=== PATIENT | female | born 1965 | race Caucasian/White ===

== ENCOUNTER 2018-06-22 09:27 | Day surgery (SDC) | payer BC ==
[~2018-06-22 09:27] MED LIST: FAMOTIDINE 20MG TABLET PO ONE; MECLIZINE 25 MG TABLET PO ONE; METOCLOPRAMIDE 10 MG TABLET PO ONE
[2018-06-22] MEDS ORDERED: MIDAZOLAM HCL 2MG/2ML VIAL IV ONE (09:28)
[2018-06-22] MEDS ORDERED: DEXAMETHASONE 4 MG/ML 1ML VIAL IVP ONE (09:28)
[2018-06-22] MEDS ORDERED: DESFLURANE 240 ML BTL INH ONE (09:28)
[2018-06-22] MEDS ORDERED: ATROPINE SULFATE 0.4 MG/ML 20ML IVP ONE (09:28)
[2018-06-22] MEDS ORDERED: FENTANYL PF 100MCG/2ML VIAL IV ONE (09:28)
[2018-06-22] MEDS ORDERED: GLYCOPYRROLATE 0.2 MG/ML ML IV ONE (09:28)
[2018-06-22] MEDS ORDERED: LIDOCAINE 2% MDV (20MG/ML) 20ML VIAL IV ONE (09:28)
[2018-06-22] MEDS ORDERED: PROPOFOL 10 MG/ML VIAL IV ONE (09:28)
[2018-06-22] MEDS ORDERED: RINGERS SOLUTION,LACTATED 1,000 ML IV ONE (10:00)
[2018-06-22] MEDS ORDERED: SCOPOLAMINE 1 PATCH TDSY TD ONE (10:50)
[2018-06-22] MEDS ORDERED: TRAMADOL HCL 50 MG TABLET PO ONE (12:50)
--- NOTE | 2018-06-23 09:20 | Operative Note ---
DATE OF SURGERY: 06/22/2018 SURGEON: Elliot Vincent D.O. REFERRING PHYSICIAN: Dr. Vilma Shrestha PREOPERATIVE DIAGNOSIS: Dorsal scapholunate ganglion, left wrist. POSTOPERATIVE DIAGNOSIS: Dorsal scapholunate ganglion, left wrist. OPERATION: Excision of dorsal scapholunate ganglion of the left wrist using 3.5 loop magnification. PROCEDURE: This 53-year-old female was taken to the operating room and placed in the supine position on the operating table. General anesthesia was induced, and the left upper extremity was elevated, prepped with Hibiclens, and draped in the usual sterile fashion, exsanguinated, and the tourniquet inflated to 250 mm Hg. A dorsal incision was made over the scapholunate joint, dissecting down through the skin to subcutaneous tissue. Extensor tendons retracted radially and ulnarly to expose the dome of the ganglion. The ganglion had receded in size significantly since she was seen in the office, making it difficult to find, but the soft sac of tissue was identified, and this was bluntly and sharply dissected free and removed. Capsulotomy was performed to remove the stalk of the ganglion. The wound was then irrigated and hemostasis obtained with electrocautery. The subcutaneous tissue was closed with 4-0 Vicryl and the skin with a running 4-0 nylon suture. Sterile dressings were applied with a plaster splint with the wrist in slight palmar flexion. GROSS PATHOLOGY: This patient had a very small dorsal scapholunate ganglion, which was removed in the manner described above. [facility]
== END 2018-06-22 13:25 | disposition home or self-care (01) ==
LOC: SUR 09:27
PROVIDERS: ATTEND Orthopaedic Surgery
DX: M67.432 Ganglion, left wrist (principal); I10 Essential (primary) hypertension; E78.00 Pure hypercholesterolemia, unspecified; E11.9 Type 2 diabetes mellitus without complications
CPT/HCPCS: J7120